=== PATIENT | female | born 1945 | race Caucasian/White ===

== ENCOUNTER 2019-01-08 14:02 | Emergency (ER) | payer OTHER ==
[~2019-01-08] VITALS: Ht 160 cm; Wt 77.1 kg
[~2019-01-08 14:02] MED LIST: ACCUNEB SO1.25 MG/1 INH; ADVIL PRN; ALEVE-D SINUS-1 EACH PO; ALLEGRA30 MG; BACTRIM DS TAB1 EACH PO; BENADRYL25 MG PO; FOSAMAX 70 MG T70 MG PO; FOSAMAX PLUS D1 EACH; IBUPROFEN200 M2 PO; KEFLEX500 MG PO; MEDROLDOSEPACK PO; MOBIC7.5 MG PO; PEPCID20 MG PO; PRILOSEC40 MG PO; ZOCOR 10 MG TAB10 MG; ZOCOR 20 MG TAB20 M1 PO
[2019-01-08] MEDS ORDERED: OMEPRAZOLE40 MG PO (14:16)
[2019-01-08] MEDS ORDERED: PRESERVISION T1 EACH PO (14:16)
[2019-01-08] MEDS ORDERED: UNICOMPLEX M TA1 TA1 PO (14:17)
[2019-01-08 15:58] VITALS: BP 155/72
== END 2019-01-08 15:50 | disposition home or self-care (01) ==
LOC: M.ERS 14:02
DX: S42.031A Displaced fracture of lateral end of right clavicle, initial encounter for closed fracture (principal); S63.636A Sprain of interphalangeal joint of right little finger, initial encounter; S50.11XA Contusion of right forearm, initial encounter; M81.0 Age-related osteoporosis without current pathological fracture; Z86.011 Personal history of benign neoplasm of the brain; Z98.890 Other specified postprocedural states; Z90.49 Acquired absence of other specified parts of digestive tract; Z90.89 Acquired absence of other organs; Z88.5 Allergy status to narcotic agent; W10.9XXA Fall (on) (from) unspecified stairs and steps, initial encounter; Y93.01 Activity, walking, marching and hiking; Y92.89 Other specified places as the place of occurrence of the external cause; Y99.8 Other external cause status

== ENCOUNTER 2021-01-22 14:52 | Emergency (ER) | payer OTHER ==
[~2021-01-22] VITALS: Ht 160 cm; Wt 77.1 kg
[~2021-01-22 14:52] MED LIST changes: +OMEPRAZOLE40 MG PO; +PRESERVISION T1 EACH PO; +UNICOMPLEX M TA1 TA1 PO
[2021-01-22 15:46] LABS: ABSOLUTE BASOPHILS 0.1 thou/uL (0.0-0.2); ABSOLUTE EOSINOPHILS 0.2 thou/uL (0.0-0.7); ABSOLUTE LYMPHOCYTES 0.9 thou/uL (0.8-5.3); ABSOLUTE MONOCYTES 0.7 thou/uL (0.0-1.2); ABSOLUTE NEUTROPHILS 5.2 thou/uL (1.6-8.1); BASOPHILS 0.7 %; EOSINOPHILS 2.1 %; HEMATOCRIT 31.3 % (37.0-47.0); HEMOGLOBIN 10.5 gm/dL (12.0-15.0); LYMPHOCYTES 13.1 %; MCHC 33.4 g/dL (28.0-37.0); MCV 80.7 fL (80.0-100.0); MONOCYTES 9.6 %; MPV 8.4 fl. (7.2-11.1); NUCLEATED RBCS 0 /100WBC; PLATELET COUNT* 274 thou/uL (150-400); POLYS 74.5 %; RBC 3.89 mil/uL (4.20-5.00); WBC 7.1 thou/uL (4.0-11.0)
[2021-01-22 15:56] LABS: CALCIUM 8.3 mg/dL (8.5-10.1); CREATININE 0.7 mg/dL (0.6-1.3); POTASSIUM 4.1 mmol/L (3.5-5.1)
[2021-01-22 16:07] LABS: ALBUMIN 2.6 g/dL (3.4-5.0); TOTAL BILIRUBIN 0.3 mg/dL (<0.1-1.0); TOTAL PROTEIN 6.5 g/dL (6.4-8.2)
--- NOTE | 2021-01-22 16:13 | EKG ---
[place] [address] ELECTROCARDIOGRAM REPORT Name: HUANG STORMDAVID Bolivar Room: [facility]#: [id number] Admission: 01/22/21 Attend Phys: Discharge: Date of : 43 Date of Service: 01/22/21 1541 Report #: [id number] THIS REPORT FOR: //name// [facility] ED Test Date: 2021-01-22 Test Time: 15:41:19 Pat Name: BETZY STORM Department: Room: Gender: [employer]st: : 1945 Requested By: Cristobal Junior Order Number: [id number] MD: Uriel La Measurements Intervals [place] Rate: 88 P: 61 CO: 131 QRS: 50 QRSD: 79 T: 4 QT: 376 QTc: 455 Interpretive Statements Sinus rhythm Probable left atrial enlargement Low voltage, precordial leads Borderline T abnormalities, anterior leads No previous ECG available for comparison Electronically Signed On 01-22-2021 16:13:31 CDT by Uriel La [email or web address] <ELECTRONICALLY SIGNED> By: Uriel La MD, [facility] 01/22/21 1613 1541 1541 Uriel La MD, [facility] /EPI
[2021-01-22] MEDS ORDERED: VENTOLIN HFA 1818 GM INH (16:50)
[2021-01-22] MEDS ORDERED: PREDNISONE 20 M20 M1 PO (16:50)
[2021-01-22] MEDS ORDERED: ZPAK PO (16:50)
[2021-01-22 17:27] VITALS: BP 131/69
== END 2021-01-22 17:27 | disposition home or self-care (01) ==
LOC: M.ERS 14:52
PROVIDERS: Family Medicine
DX: J44.1 Chronic obstructive pulmonary disease with (acute) exacerbation (principal); Z20.822 Contact with and (suspected) exposure to COVID-19; J18.9 Pneumonia, unspecified organism; Z90.49 Acquired absence of other specified parts of digestive tract; Z90.89 Acquired absence of other organs; Z79.899 Other long term (current) drug therapy; Z87.891 Personal history of nicotine dependence; Z88.5 Allergy status to narcotic agent